=== PATIENT | female | born 1945 | race Caucasian/White ===

== ENCOUNTER → 2016-12-31 | Outpatient (CLI) | payer MEDICARE ==
[~2016-12-31] MED LIST: CALCIUM600 MG PO; MULTI VITAMINS1 TAB PO; VERAPAMIL SR 2240 MG PO
[2016-12-31 10:26] LABS: HEMOGLOBIN 13.5 g/dL (12.2-16.2); LYMPH # 0.1 K/mm3 (0.7-4.5)
[2016-12-31 10:59] LABS: BUN 16 mg/dL (7-18)
[2016-12-31 11:04] LABS: GFR (ESTIMATED) 71 ML/MIN (59-)
[2016-12-31 12:21] LABS: NEUTROPHILS 55 % (42-76)
== END ==
LOC: LAB 10:02
PROVIDERS: Internal Medicine
DX: I10 Essential (primary) hypertension (principal); M15.0 Primary generalized (osteo)arthritis